=== PATIENT | female | born 2000 | race Two or more races ===

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

== ENCOUNTER 2018-12-12 22:43 | Emergency (ER) | payer BC, OTHER ==
--- NOTE | 2018-12-13 01:20 | ED ---
Throat Pain/Nasal Congestion - HPI Summary HPI Summary: Patient complains of right ear pain and drainage starting tonight at 7:30. History of recurrent ear infections. Denies fever, cough, sore throat, CP, SOB , N/V/D, SOB, change in urine, change in BM. Denies medical history. - History of Current Complaint Chief Complaint: EDEarPain Time Seen by Provider: 12/13/18 01:16 Hx Obtained From: Patient Onset/Duration: Sudden Onset, Lasting Hours Severity: Moderate Associated Signs And Symptoms: Positive: Negative Cough: None - Allergies/Home Medications Allergies/Adverse Reactions: Allergies Allergy/AdvReac Type Severity Reaction Status Date / Time No Known Allergies Allergy Verified 01/21/17 22:16 PMH/Surg Hx/FS Hx/Imm Hx Endocrine/Hematology History: Denies: Hx Diabetes Cardiovascular History: Denies: Hx Hypertension Respiratory History: Denies: Hx Asthma History: Denies: Hx Dialysis Sensory History: Denies: Hx Eye Prosthesis Opthamlomology History: Denies: Hx Legally Blind EENT History: Denies: Hx Deafness Neurological History: Denies: Hx Dementia - Surgical History Surgery Procedure, Year, and Place: n/a Infectious Disease History: No Infectious Disease History: Denies: Traveled Outside the [place] in Last 30 Days - Family History Known Family History: Positive: None - Social History Alcohol Use: None Substance Use Type: Reports: None Smoking Status (MU): Never Smoked Tobacco Review of Systems Constitutional: Negative Eyes: Negative Positive: Ear Ache Cardiovascular: Negative Respiratory: Negative Gastrointestinal: Negative Genitourinary: Negative Musculoskeletal: Negative Skin: Negative Neurological: Negative Psychological: Normal All Other Systems Reviewed And Are Negative: Yes Physical Exam - Summary Physical Exam Summary: Erythema and purulent discharge in either ear canal of right ear. ENT exam otherwise unremarkable. Triage Information Reviewed: Yes Vital Signs On Initial Exam: Initial Vitals Temp Pulse Resp BP Pulse Ox 97.6 F 80 18 120/73 99 12/12/18 22:55 12/12/18 22:55 12/12/18 22:55 12/12/18 22:55 12/12/18 22:55 Vital Signs Reviewed: Yes Appearance: Positive: Well-Appearing Skin: Positive: Warm Head/Face: Positive: Normal Head/Face Inspection Eyes: Positive: Normal ENT: Positive: Other Neck: Positive: Supple Respiratory/Lung Sounds: Positive: Clear to Auscultation Cardiovascular: Positive: Normal Abdomen Description: Positive: Nontender Musculoskeletal: Positive: Normal Neurological: Positive: Normal Psychiatric: Positive: Normal AVPU Assessment: Alert - [place] Coma Scale Best Eye Response: 4 - Spontaneous Best Motor Response: 6 - Obeys Commands Best Verbal Response: 5 - Oriented Coma Scale Total: 15 Procedures - Sedation Patient Received Moderate/Deep Sedation with Procedure: No Diagnostics - Vital Signs Vital Signs Temp Pulse Resp BP Pulse Ox 12/13/18 01:00 98.0 F 68 20 124/92 99 12/12/18 22:55 97.6 F 80 18 120/73 99 - Laboratory Lab Statement: Any lab studies that have been ordered have been reviewed, and results considered in the medical decision making process. EENT Course/Dx - Course Course Of Treatment: Patient complains of right ear pain and drainage starting tonight at 7:30. History of recurrent ear infections. Denies fever, cough, sore throat, CP, SOB, N/V/D, SOB, change in urine, change in BM. Denies medical history. Vital signs within normal limits. Ciprodex administered here in the ED. Patient given tube - Diagnoses Provider Diagnoses: Otitis externa Discharge ED - Sign-Out/Discharge Documenting (check all that apply): Patient Departure - Discharge Plan Condition: Stable Disposition: HOME Patient Education Materials: Otitis Externa (ED) Referrals: [facility] - [place] [Primary Care Provider] - Additional Instructions: 4 drops of antibiotic solution in right ear twice a day for 7 days. Alternate ibuprofen 600 mg with Tylenol 650 mg every 3 hours for pain as needed. If symptoms do not improve in one week follow-up with ear nose and throat Dr. Cobb for further evaluation. - Billing Disposition and Condition Condition: STABLE Disposition: Home
[2018-12-13] MEDS ORDERED: Ibuprofen TAB* 600 MG PO ONE (01:33)
[2018-12-13] MEDS ORDERED: Ciproflox/Dexameth OTIC.SUSP* 7.5 ML BTL RIGHT EAR ONE (01:33)
[2018-12-13] MEDS ORDERED: oxyCODONE TAB* 5 MG TAB PO ONE (01:40)
[2018-12-13 02:03] VITALS: BP 120/63
== END 2018-12-13 01:55 | disposition home or self-care (01) ==
LOC: ED 22:43
DX: H60.91 Unspecified otitis externa, right ear (principal)
CPT/HCPCS: 99282; A9270-GY